=== PATIENT | male | born 1990 | race Two or more races ===

== ENCOUNTER 2024-08-29 07:37 | Emergency (ER) | payer MEDICARE, MEDICAID ==
[~2024-08-29] VITALS: Ht 185.4 cm; Wt 99.1 kg
[2024-08-29 08:05] VITALS: BP 116/65; PULSE 104; RESP 20; TEMP 97.4; O2SAT 95
--- NOTE | 2024-08-29 08:11 | ED.PDOC ---
Musculoskeletal HPI Comments A 33 YEAR OLD MALE BROUGHT IN BY PARENT PRESENTS TO THE ED WITH COMPLAINT OF RIGHT FIFTH TOE PAIN. PARENTS STATE THE PATIENT ACCIDENTALLY SLAMMED HIS RIGHT FIFTH TOE AND A SHOWER DOOR 2 WEEKS AGO AND HAS BEEN EXPERIENCING RIGHT FIFTH TOE PAIN A RESULT SINCE THEN. PATIENT WAS ABLE TO WALK AND BEAR WEIGHT WITH A STABLE GAIT. PATIENT DENIES FEVER, CHILLS, SHORTNESS OF BREATH, CHEST PAIN, ABDOMINAL PAIN, NAUSEA, VOMITING, HEADACHE, OR OTHER COMPLAINTS. NO OTHER SYMPTOMS OR MODIFYING FACTORS AT THIS TIME. PATIENT IS ALERT, ORIENTED X 4, AND HAS STEADY GAIT. Chief Complaint: Lower Extremity Time Seen by MD: 07:39 Reviewed Notes: Nurses Notes, Medications, Allergies Allergies: Coded Allergies: NO KNOWN ALLERGIES (Unverified , 08/29/24) Information Source: Patient Mode of Arrival: Ambulatory Location: Right Extremity Location: Little Toe Timing: Weeks Prehospital treatment: None Severity: Moderate Able to Move Extremity: Yes Bear Weight: Fully Pain: Moderate Mechanism: Blunt Trauma Circumstances: Door Closure Onset of Symptoms: After Trauma Symptoms: Swelling, Pain DVT Risk Factors: NONE Last Tetanus: UTD, Unknown Associated signs and symptoms: Foot pain (RIGHT FOOT) Past Medical History Past Medical History (Other): AUTISM, ADHD Surgical History: Denies all surgeries Family History Family History: Reviewed,noncontributory to illness Social History Smoker: Non-Smoker Alcohol: Denies ETOH Use Drugs: Denies Drug Use Lives In: Home Constitutional: denies: chills, diaphoresis, fatigue, fever, malaise, sweats, weakness, others EENTM: denies: blurred vision, double vision, ear bleeding, ear discharge, ear drainage, ear pain, ear ringing, eye pain, eye redness, hearing loss, mouth pain, mouth swelling, nasal discharge, nose bleeding, nose congestion, nose pain, photophobia, tearing, throat pain, throat swelling, voice changes, others Respiratory: denies: cough, hemoptysis, orthopnea, SOB at rest, shortness of breath, SOB with excertion, stridor, wheezing, others Cardiovascular: denies: chest pain, dizzy spells, diaphoresis, Dyspnea on exertion, edema, irregular heart beat, left arm pain, lightheadedness, palpitations, PND, syncope, others Gastrointestinal: denies: abdomen distended, abdominal pain, blood streaked bowels, constipated, diarrhea, dysphagia, difficulty swallowing, hematemesis, melena, nausea, poor appetite, poor fluid intake, rectal bleeding, rectal pain, vomiting, others Genitourinary: denies: burning, dysuria, flank pain, frequency, hematuria, i ncontinence, penile discharge, penile sore, pain, testicle pain, testicle swelling, urgency, others Neurological: denies: dizziness, fainting, headache, left sided numbness, left sided weakness, numbness, paresthesia, pre-existing deficit, right sided numbness, right sided weakness, seizure, speech problems, tingling, tremors, weakness, others Musculoskeletal: reports: joint pain, joint swelling, others (RIGHT FIFTH TOE PAIN); denies: back pain, gout, muscle pain, muscle stiffness, neck pain Integumetry: denies: bruises, change in color, change in hair/nails, dryness, laceration, lesions, lumps, rash, wounds, others Allergic/Immunocompromised: denies: Difficulty Healing, Frequent Infections, Hives, Itching, others Hematologic/Lymphatic: denies: anemia, blood clots, easy bleeding, easy bruising, swollen glands, others Endocrine: denies: excessive hunger, excessive sweating, excessive thirst, excessive urination, flushing, intolerance to cold, intolerance to heat, unexplained weight gain, unexplained weight loss, others Psychiatric: denies: anxiety, bipolar disorder, depression, hopeless, panic disorder, schizophrenia, sleepless, suicidal, others All Other Systems: Reviewed and Negative Physical Exam General Appearance: No Apparent Distress, Normal HEENT: Normal ENT Inspection, PERRL/EOMI, Pharynx Normal, TMs Normal Neck: Full Range of Motion, Non-Tender, Normal, Normal Inspection Respiratory: Chest Non-Tender, Lungs Clear, No Accessory Muscle Use, No Respiratory Distress, Normal Breath Sounds Cardiovascular: No Edema, No JVD, No Murmur, No Gallop, Normal Peripheral Pulses, Regular Rate/Rhythm Breast Exam: Deferred Gastrointestinal: No Organomegaly, Non Tender, No Pulsatile Mass, Normal Bowel Sounds, Soft Genitalia: Deferred Pelvic: Deferred Rectal: Deferred Extremities: No calf tenderness, Normal capillary refill, Normal range of motion, No pedal edema, Tender (AND MILD SWELLING ON RIGHT 5TH TOE REGION, NO OPEN WOUND AND DEFORMITY. ) Musculoskeletal : Apperance: Normal Neurologic: Alert, licensed loan officer assistant II-XII nml as Tested, No Motor Deficits, Normal Affect, Normal Mood, No Sensory Deficits Cerebellar Function: Normal Reflexes: Normal Skin: Dry, Normal Color, Warm Peripheral Pulses: 2+ carotid (R), 2+ carotid (L), 2+ dorsalis pedis (R), 2+ dorsalis pedis (L) Lymphatic: No Adenopathy Was a procedure done? Was a procedure done?: No Differential Diagnosis EXT Differential Diagnosis: Fracture, Sprain, Dislocation, Contusion, Strain, Bursitis X-Ray, Labs, Meds, VS Vital Signs Date Time Temp Pulse Resp B/P (MAP) Pulse Ox O2 Delivery O2 Flow Rate FiO2 08/29/24 08:05 104 20 95 Room Air 08/29/24 08:05 97.4 104 20 116/65 (82) 95 97.4 08/29/24 07:47 97.4 104 20 116/65 (82) 95 97.4 X-Ray, Labs, Meds, VS Comment EXTERNAL MEDICAL RECORDS REVIEWED: [NONE] INDEPENDENT HISTORIANS: [NONE] SOCIAL DETERMINANTS OF HEALTH: [NONE] LABS ORDERED: NONE REVIEWED AND INTERPRETED RESULTS: NONE IMAGING ORDERED: XR FOOT RT: [INTERPRETED BY ME. NONDISPLACED 5TH PROXIMAL PHALANX FRACTURE VISUALIZED. NO DISLOCATION SEEN. PENDING RADIOLOGY REVIEW.] TREATMENTS ORDERED: POST OP SHOE OF RIGHT FOOT PROCEDURES PERFORMED: NONE CRITICAL CARE TIME: NONE I HAVE DISCUSSED THE PATIENT WITH THE ATTENDING PHYSICIAN DR. TINEO AND HE AGREES WITH THE PATIENT'S PLAN OF CARE AND DISPOSITION. BASED ON HISTORY OF PRESENT ILLNESS, AND PHYSICAL EXAM, PATIENT WILL BE DISCHARGED HOME. SHARED DECISION MAKING: PATIENT INSTRUCTED TO FOLLOW UP WITH PRIMARY CARE PROVIDER IN 1-2 DAYS FOR RE-EVALUATION OF SYMPTOMS. PATIENT VERBALIZES UNDERSTANDING TO RETURN TO ED FOR NEW OR WORSENING SYMPTOMS OR IF FOLLOW UP WITH PCP CANNOT BE OBTAINED. PATIENT FEELS COMFORTABLE GOING HOME AT THIS TIME. ALL QUESTIONS ADDRESSED AT TIME OF DISCHARGE. Images Reviewed?: Images reviewed and evaluated by me Time of 1ST Reevaluation: 08:40 Reevaluation 1ST: Improved Patient Education/Counseling: Diagnosis, Treatment, Need For Follow Up Family Education/Counseling: Diagnosis, Treatment, Need For Follow Up Medical Screening: No EMC Exist At This Time Departure 1 Departure Time of Disposition: 08:40 Impression: Primary Impression: Fracture of proximal phalanx of lesser toe of right foot Qualified Codes: S92.514A - Nondisplaced fracture of proximal phalanx of right lesser toe(s), initial encounter for closed fracture Disposition: HOME / SELF CARE / HOMELESS Condition: Stable Additional Instructions: FOLLOW-UP WITH PCP IN 1 TO 2 DAYS FOR REFERRAL TO [facility]. RETURN TO ED FOR ANY NEW OR WORSENING SYMPTOMS. Written Prescriptions PT HAS PAIN MEDICATION AT HOME. Discharged With: Self, Relative (Mother) Critical Care Note Critical Care Time?: No Stability Stability form required: No I personally scribed for RISHI CH ([email or web address]) on 08/29/24 at 08:11. Nohelia ctronically submitted by Adair Nguyễn ([email or web address]). I personally scribed for RISHI CH ([email or web address]) on 08/29/24 at 08:26. Elect ronically submitted by Adair Nguyễn ([email or web address]). RISHI CH August 29, 2024 08:11
--- NOTE | 2024-08-29 08:41 | DVH ---
CLINICAL INFORMATION: 33 years old, Male; INJURY. TECHNIQUE: 3 views of the right foot were obtained. COMPARISON: None FINDINGS: Acute, transversely oriented fracture of the distal aspect of the proximal phalanx of the 5 th digit without significant displacement. No significant arthritic changes are seen. Adjacent soft t issues are unremarkable. IMPRESSION: Acute fracture of the proximal phalanx of the 5th digit as described above.
== END 2024-08-29 08:38 | disposition home or self-care (01) ==
LOC: ER 07:37
DX: S92.514A Nondisplaced fracture of proximal phalanx of right lesser toe(s), initial encounter for closed fracture (principal); F84.0 Autistic disorder; W20.8XXA Other cause of strike by thrown, projected or falling object, initial encounter; Y93.E1 Activity, personal bathing and showering; Y92.091 Bathroom in other non-institutional residence as the place of occurrence of the external cause; Y99.8 Other external cause status
CPT/HCPCS: 73630

== ENCOUNTER 2024-09-13 19:16 | Emergency (ER) | payer MEDICARE, MEDICAID ==
[~2024-09-13] VITALS: Ht 182.9 cm; Wt 101.9 kg
--- NOTE | 2024-09-13 19:51 | ED.PDOC ---
History of Present Illness(SKN HPI Comments C/C of rightfoot pain. Agency Recruiter states he has a broken right pinky toe, but that is not the concern. Concern for 4th digit on right foot has an ulcer and letitia would like it "checked out." +CSM. Pt ambulates with steady gait. VSS. NKDA. Chief Complaint: Lower Extremity Time Seen by MD: 19:25 History of Present Illness: Nurses Notes, Medications, Allergies Allergies: Coded Allergies: NO KNOWN ALLERGIES (Unverified , 08/29/24) Home Meds Active Scripts Cephalexin Monohydrate (Cephalexin) 500 Mg Cap, 500 MG PO Q8HR for 5 Days, #15 CAP Prov:ALYSSIA ESCALERA RECRUITING INTERN 09/13/24 Information Source: Patient Mode of Arrival: Ambulatory Past Medical History PAST MEDICAL HISTORY: Denies Past Medical History (Other): AUTISM IN A RESIDENTIAL Surgical History: Denies all surgeries Family History Family History: Reviewed,noncontributory to illness Social History Smoker: Non-Smoker Alcohol: Denies ETOH Use Drugs: Denies Drug Use Lives In: Home Constitutional: denies: chills, diaphoresis, fatigue, fever, malaise, sweats, weakness, others EENTM: denies: blurred vision, double vision, ear bleeding, ear discharge, ear drainage, ear pain, ear ringing, eye pain, eye redness, hearing loss, mouth pain, mouth swelling, nasal discharge, nose bleeding, nose congestion, nose pain, photophobia, tearing, throat pain, throat swelling, voice changes, others Respiratory: denies: cough, hemoptysis, orthopnea, SOB at rest, shortness of breath, SOB with excertion, stridor, wheezing, others Cardiovascular: denies: chest pain, dizzy spells, diaphoresis, Dyspnea on exertion, edema, irregular heart beat, left arm pain, lightheadedness, palpitations, PND, syncope, others Gastrointestinal: denies: abdomen distended, abdominal pain, blood streaked bowels, constipated, diarrhea, dysphagia, difficulty swallowing, hematemesis, melena, nausea, poor appetite, poor fluid intake, rectal bleeding, rectal pain, vomiting, others Genitourinary: denies: burning, dysuria, flank pain, frequency, hematuria, inco ntinence, penile discharge, penile sore, pain, testicle pain, testicle swelling, urgency, others Neurological: denies: dizziness, fainting, headache, left sided numbness, left sided weakness, numbness, paresthesia, pre-existing deficit, right sided numbness, right sided weakness, seizure, speech problems, tingling, tremors, weakness, others Musculoskeletal: denies: back pain, gout, joint pain, joint swelling, muscle pain, muscle stiffness, neck pain, others Integumetry: reports: wounds (IN BETWEEN 4TH AND 5TH DIGIT RIGHT FOOT); denies: bruises, change in color, change in hair/nails, dryness, laceration, lesions, lumps, rash, others Allergic/Immunocompromised: denies: Difficulty Healing, Frequent Infections, Hives, Itching, others Hematologic/Lymphatic: denies: anemia, blood clots, easy bleeding, easy bruising, swollen glands, others Endocrine: denies: excessive hunger, excessive sweating, excessive thirst, excessive urination, flushing, intolerance to cold, intolerance to heat, unexpl ained weight gain, unexplained weight loss, others Psychiatric: denies: anxiety, bipolar disorder, depression, hopeless, panic disorder, schizophrenia, sleepless, suicidal, others Physical Exam General Appearance: No Apparent Distress, Normal HEENT: Pharynx Normal Neck: Full Range of Motion, Non-Tender Respiratory: Lungs Clear, No Respiratory Distress, Normal Breath Sounds Cardiovascular: No Murmur, Normal Peripheral Pulses, Regular Rate/Rhythm Breast Exam: Deferred Gastrointestinal: Non Tender, Soft Genitalia: Deferred Pelvic: Deferred Rectal: Deferred Extremities: Normal capillary refill, Normal inspection, Normal range of motion, Non-tender, No pedal edema Musculoskeletal : Apperance: Normal Neurologic: Alert, inside outside sales representative II-XII nml as Tested, No Motor Deficits, Normal Affect, Normal Mood, No Sensory Deficits Cerebellar Function: Normal Reflexes: Normal Skin: Dry, Normal Color, Warm, Wounds (NOTED DIME-SIZED BLOOD BLISTER WITH TRACE SURROUNDING ERYTHEMA ON LATERAL ASPECT RIGHT FOOT IN BETWEEN 4TH AND 5TH DIGIT NO NOTED DRAINAGE, OR BLEEDING NO NOTED STREAKING.) Lymphatic: No Adenopathy Was a procedure done? Was a procedure done?: No Differential Diagnosis (INTG) Differential Diagnosis: Cellulitis, Hematoma, Laceration, Puncture Wound Differential Diagnosis: Abscess X-Ray, Labs, Meds, VS Vital Signs Date Time Temp Pulse Resp B/P (MAP) Pulse Ox O2 Delivery O2 Flow Rate FiO2 09/13/24 20:22 98.2 77 16 124/69 (87) 97 98.2 09/13/24 20:22 77 16 97 Room Air 09/13/24 19:25 98.2 74 16 144/76 (98) 95 98.2 X-Ray, Labs, Meds, VS Comment ADVISED NOT TO POP THE BLISTER. LIKELY SECONDARY DEVELOPED DUE TO ORTHO SHOE FOR 5TH TOE FRACTURE. SCRIPT TRIAL OF ANTIBIOTICS. TAKE MEDICATIONS PRESCRIBED SIDE EFFECTS DISCUSSED. PATIENT'S CARE PROVIDER AND NURSE ON THE PHONE STATES PATIENT HAS A ROUTINE FOLLOW-UP THIS WEEK ON SATURDAY. ER RETURN PRECAUTIONS GIVEN PATIENT AND CARE PROVIDER INDICATED UNDERSTANDING AND AGREE WITH DISCHARGE PLAN OF CARE. Time of 1ST Reevaluation: 19:51 Reevaluation 1ST: Unchanged Patient Education/Counseling: Diagnosis, Treatment, Prognosis, Need For Follow Up Family Education/Counseling: Diagnosis, Treatment, Prognosis, Need For Follow Up Departure 1 Departure Time of Disposition: 20:24 Impression: Primary Impression: Blood blister Disposition: 01 HOME / SELF CARE / HOMELESS Condition: Stable e-Prescriptions Cephalexin Monohydrate (Cephalexin) 500 Mg Cap 500 MG PO Q8HR for 5 Days, #15 CAP Prov: ALYSSIA ESCALERA 09/13/24 Discharged With: Bounty Trapper Critical Care Note Critical Care Time?: No Stability Stability form required: ALYSSIA Guerrero September 13, 2024 19:51
[2024-09-13 20:22] VITALS: BP 124/69; PULSE 77; RESP 16; TEMP 98.2; O2SAT 97
[2024-09-13] MEDS ORDERED: CEPH500C PO (20:26)
== END 2024-09-13 20:50 | disposition home or self-care (01) ==
LOC: ER 19:23
DX: S90.821A Blister (nonthermal), right foot, initial encounter (principal); F84.0 Autistic disorder; X58.XXXA Exposure to other specified factors, initial encounter; Y93.89 Activity, other specified; Y92.89 Other specified places as the place of occurrence of the external cause; Y99.8 Other external cause status

== ENCOUNTER 2024-10-03 09:04 | Emergency (ER) | payer MEDICARE, MEDICAID ==
[~2024-10-03] VITALS: Ht 182.9 cm; Wt 100.1 kg
[2024-10-03 09:17] VITALS: PULSE 92; RESP 18; O2SAT 97
--- NOTE | 2024-10-03 09:22 | ED.PDOC ---
Musculoskeletal HPI Comments 33-year-old male presents here with right 5th toe erythema x1 week. Patient here with a bait maker as patient has a history of severe autism. Patient denies any recent cough cold runny nose fever or chills. Cheese Pancake Roller concerned about possible infection. No discharge. Time Seen by MD: 09:20 Reviewed Notes: Nurses Notes, Medications, Allergies Allergies: Coded Allergies: NO KNOWN ALLERGIES (Unverified , 08/29/24) Home Meds Active Scripts Sulfamethoxazole W/Trimethopri (Bactrim Ds Tablet) 1 Tab Tb, 1 TAB PO BID for 10 Days, #20 TAB Prov:SARA MILLER MD 10/03/24 Cephalexin (KEFLEX CAPSULE) 250 Mg Cp, 500 MG PO BID for 10 Days, #20 CAP Prov:SARA MILLER MD 10/03/24 Information Source: Relative (Mother) Mode of Arrival: Ambulatory Location: Right Extremity Location: Foot, Other (TOE 5) Timing: Days Prehospital treatment: None Severity: Moderate Able to Move Extremity: Yes Bear Weight: Fully Pain: Moderate Mechanism: Other (PREVIOUS FX) Circumstances: Other Onset of Symptoms: Spontaneous Symptoms: Pain, Erythema DVT Risk Factors: NONE Last Tetanus: Unknown Associated signs and symptoms: Other (TOE PAIN) Past Medical History Past Medical History (Other): AUTISM, ADHD Surgical History: Denies all surgeries Family History Family History: Reviewed,noncontributory to illness Social History Smoker: Non-Smoker Alcohol: Denies ETOH Use Drugs: Denies Drug Use Lives In: Home Musculoskeletal: reports: others (RIGHT 5TH TOE PAIN) All Other Systems: Reviewed and Negative ( PER HPI) Physical Exam General Appearance: No Apparent Distress, Normal HEENT: Normal ENT Inspection, Pharynx Normal Neck: Full Range of Motion, Non-Tender, Normal, Normal Inspection Respiratory: Chest Non-Tender, Lungs Clear, No Accessory Muscle Use, No Respiratory Distress, Normal Breath Sounds Cardiovascular: No Edema, No Murmur, No Gallop, Normal Peripheral Pulses, Regular Rate/Rhythm Breast Exam: Deferred Gastrointestinal: No Organomegaly, Non Tender, No Pulsatile Mass, Normal Bowel Sounds, Soft Genitalia: Deferred Pelvic: Deferred Rectal: Deferred Extremities: No calf tenderness, Normal capillary refill, Normal range of motion, No pedal edema, Other (Right 5th toe lateral edge with erythema. No purulent discharge.) Musculoskeletal : Location: Right Extremity Location: Foot, Other (RIGHT 5TH TOE) Apperance: Other (ERYTHEMA) Neurologic: Alert, towel inspector II-XII nml as Tested, No Motor Deficits, Normal Affect, Normal Mood, No Sensory Deficits Cerebellar Function: Normal Reflexes: Normal Skin: Dry, Normal Color, Warm Lymphatic: No Adenopathy Was a procedure done? Was a procedure done?: No Differential Diagnosis EXT Differential Diagnosis: Cellulitis, Fracture, Sprain, Strain X-Ray, Labs, Meds, VS Vital Signs Date Time Temp Pulse Resp B/P (MAP) Pulse Ox O2 Delivery O2 Flow Rate FiO2 10/03/24 09:39 98.6 86 18 110/69 (83) 97 98.6 10/03/24 09:17 98.3 92 18 110/70 (83) 97 98.3 10/03/24 09:17 92 18 97 Room Air* 0 21 33-year-old male with a history of autism here with bait maker for what appears to be cellulitis of the right 5th toe. At this time I will be discharging home with Keflex and Bactrim. Advised him to follow up with his PCP in 2-3 days and return to the ER if symptoms worsen or persist. I did discuss with bait maker then he needs to wear flip-flops that allow air exposure to the toes especially the 5th toe. Time of 1ST Reevaluation: 09:50 Reevaluation 1ST: Unchanged Patient Education/Counseling: Diagnosis, Treatment Family Education/Counseling: Diagnosis, Treatment Departure 1 Departure Time of Disposition: 09:31 Impression: Primary Impression: Cellulitis of toe of left foot Disposition: 01 HOME / SELF CARE / HOMELESS Condition: Stable Additional Instructions: Follow up with the primary care physician in 2-3 days. Return to ER if symptoms worsen or persist. Please have him wear flip-flops or keep barefoot when possible to allow for air exposure to the toes to allow for healing. e-Prescriptions Sulfamethoxazole W/Trimethopri (Bactrim Ds Tablet) 1 Tab Tb 1 TAB PO BID for 10 Days, #20 TAB Prov: SARA MILLER MD 10/03/24 Cephalexin (KEFLEX CAPSULE) 250 Mg Cp 500 MG PO BID for 10 Days, #20 CAP Prov: SARA MILLER MD 10/03/24 Discharged With: Self, Immigration Services Officer Critical Care Note Critical Care Time?: No Stability Stability form required: No Heart Score Heart Score: Heart Score Response (Comments) Value History N/A 0 EKG N/A 0 Age N/A 0 Risk Factors N/A 0 Troponin N/A 0 Total 0 I personally scribed for SARA MILLER MD ([email or web address]) on 10/03/24 at 09:22. Electronically submitted by Kathy Somers ([email or web address]). I personally scribed for SARA MILLER MD ([email or web address]) on 10/03/24 at 09:24. Electronically submitted by Kathy Somers ([email or web address]). SARA MILLER MD Oct 03, 2024 09:22
[2024-10-03] MEDS ORDERED: CEPH250C PO (09:31)
[2024-10-03] MEDS ORDERED: BACDST PO (09:31)
[2024-10-03 09:39] VITALS: BP 110/69; PULSE 86; RESP 18; TEMP 98.6; O2SAT 97
== END 2024-10-03 09:43 | disposition home or self-care (01) ==
LOC: ER 09:04
DX: L03.032 Cellulitis of left toe (principal); F84.0 Autistic disorder